=== PATIENT | female | born 1985 | race African-American/Black ===

== ENCOUNTER 2017-02-01 12:43 | Emergency (ER) | payer OTHER ==
[~2017-02-01] VITALS: Ht 170.2 cm; Wt 90.0 kg
[2017-02-01 14:27] VITALS: BP 110/67
== END 2017-02-01 22:45 | disposition left against medical advice (07) ==
LOC: ER 22:42
DX: R50.9 Fever, unspecified (principal); Z53.21 Procedure and treatment not carried out due to patient leaving prior to being seen by health care provider

== ENCOUNTER 2019-03-08 10:41 | Emergency (ER) | payer MEDICAID, OTHER ==
[~2019-03-08] VITALS: Ht 170.2 cm; Wt 227.0 kg
[2019-03-08 14:09] LABS: BASOPHILS % 0.4 % (0.0-2.0); EOSINOPHILS % 2.2 % (0.0-5.0); HEMATOCRIT. 37.5 % (36.0-48.0); HEMOGLOBIN. 12.4 g/dL (12.0-16.0); LYMPHOCYTES % 15.9 % (20.0-50.0); MEAN CORPUSCULAR HEMOGLOBIN 31.3 pg (28.0-32.0); MEAN CORPUSCULAR VOLUME 94.6 fL (81.0-99.0); MEAN PLATELET VOLUME 9.6 fl (7.4-10.4); NEUTROPHILS % 76.5 % (40.0-76.0); PLATELET 197 x1000/uL (130-400); RED BLOOD CELL COUNT 3.96 mill/uL (4.2-5.4); RED CELL DISTRIBUTION WIDTH 13.9 % (11.6-14.6)
[2019-03-08 14:10] LABS: CHLORIDE 107 mEq/L (98-107)
[2019-03-08 14:35] LABS: B-HCG QUANTITATIVE 10801 mIU/mL (<3)
[2019-03-08] MEDS ORDERED: CEFTRIAXONE SODIUM 250 MG/VIAL IM ONE (15:00)
[2019-03-08] MEDS ORDERED: AZITHROMYCIN 500 MG TABLET PO ONE (15:00)
[2019-03-08] MEDS ORDERED: CEFTRIAXONE SODIUM 250 MG/VIAL ONE (15:20)
[2019-03-08] MEDS ORDERED: AZITHROMYCIN 500 MG TABLET ONE (15:21)
[2019-03-08 15:44] LABS: CLARITY URINE TURBID (CLEAR); COLOR URINE YELLOW (YELLOW); KETONES URINE 1+ (NEGATIVE); LEUKOCYTE ESTERASE URINE 3+ (NEGATIVE); NITRITE URINE NEGATIVE (NEGATIVE); OCCULT BLOOD URINE TRACE (NEGATIVE); PROTEIN URINE 1+ (NEGATIVE); SPECIFIC GRAVITY URINE 1.023 (1.005-1.030)
[2019-03-08 15:46] VITALS: BP 109/55
[2019-03-11 07:12] LABS: CHLAMYDIA TRACHOMATIS NAA Negative (Negative); NEISSERIA GONORRHOEAE NAA Negative (Negative)
== END 2019-03-08 16:00 | disposition home or self-care (01) ==
LOC: ER 10:41
DX: O20.0 Threatened abortion (principal); O23.42 Unspecified infection of urinary tract in pregnancy, second trimester; O98.212 Gonorrhea complicating pregnancy, second trimester; O98.812 Other maternal infectious and parasitic diseases complicating pregnancy, second trimester; O26.892 Other specified pregnancy related conditions, second trimester; F12.10 Cannabis abuse, uncomplicated; Z3A.18 18 weeks gestation of pregnancy; Z88.2 Allergy status to sulfonamides
CPT/HCPCS: 36415; 76805; 80053; 81003; 81025; 84702; 85025; 86850; 86900; 86901; 87086; 87210; 87491; 87591; 96372; 99284; J0696

== ENCOUNTER 2025-02-23 08:40 | Emergency (ER) | payer MEDICAID, OTHER ==
[~2025-02-23] VITALS: Ht 175.3 cm; Wt 91.0 kg
[2025-02-23 08:46] VITALS: O2SAT 97
[2025-02-23] MEDS: KETOROLAC 15MG/ML VIAL IV ONE (09:33)
[2025-02-23] MEDS ORDERED: IBUP-2029 MT (12:19)
[2025-02-23 12:33] VITALS: BP 102/63; PULSE 58; RESP 18; TEMP 36.8; O2SAT 98
== END 2025-02-23 12:38 | disposition home or self-care (01) ==
LOC: ER 08:40
DX: M79.662 Pain in left lower leg (principal); F12.90 Cannabis use, unspecified, uncomplicated; Z88.2 Allergy status to sulfonamides
CPT/HCPCS: 99285; 93970; 81025; 96372; J1885